=== PATIENT | male | born 1975 | race Caucasian/White ===

== ENCOUNTER 2024-07-10 10:40 | Emergency (ER) | payer BC, SELFPAY ==
[2024-07-10 11:34] VITALS: BP 139/89; PULSE 85; RESP 18; TEMP 36.1; O2SAT 98
--- NOTE | 2024-07-10 11:51 | ED.URI ---
HPI - URI/Sore Throat General Chief Complaint: Upper Respiratory Infection Stated Complaint: coughing and chest pain Source: patient Mode of arrival: ambulatory Limitations: no limitations History of Present Illness HPI Narrative: 49 y/o female presented for c/o headache, body aches, sinus pressure/congestion, cough, fever/chills. Onset 6 days. States he is starting to feel better over the past 3 days but the cough is persistent and now ?deep. ? States he can hear a wheeze a rattle when he takes a deep breath. Denies sob, chest pain, n/v/d. Related Data Allergies Allergy/AdvReac Type Severity Reaction Status Date / Time No Known Allergies Allergy Verified 07/10/24 11:46 Review of Systems Review of Systems: CONSTITUTIONAL: Denies body aches, fever, chills, or sweats. EYES: Denies visual changes, redness, or discharge. ENT: Denies rhinorrhea, congestion, sore throat, or otalgia. CARDIOVASCULAR: Denies chest pain, palpitations, or edema. RESPIRATORY: Reports cough, denies sob, wheezing. NEUROLOGIC: Denies headache, numbness, tingling, or weakness. PSYCH: Denies depression or anxiety. All systems reviewed & are unremarkable except as noted in HPI and below PMFSH Comments At time of signature, I have reviewed and agree with nursing past medical, surgical, social and family history unless otherwise noted. Please see nursing chart for further information. There is no relevant family history pertinent to the presenting complaint Exam Narrative: GENERAL: Well-appearing, in no acute distress. EYES: EOMI. No redness or drainage. Conjunctivae normal. ENT: Mucous membranes pink and moist. No rhinorrhea. TMs normal bilaterally. Throat normal. Uvula midline. CHEST: No respiratory distress. lungs clear to all forde. HEART: Regular rate and rhythm. No murmur appreciated. ABDOMEN: Soft, nontender, nondistended, normal active bowel sounds. SKIN: Warm, dry, no rash. Capillary refill normal. Normal skin turgor. NEURO: Alert and oriented x3. Gait steady. PSYCH: Normal affect. Course Course Emergency Course: Patient is aware of diagnosis, understands and agrees to treatment plan. Anticipatory guidance given. Patient agrees to follow-up as directed and is aware of reasons to seek care at the emergency department. Portions of this record may have been created with voice recognition software Level of Care: Express Care Visit Vital Signs Vital signs: Vital Signs Temperature 96.9 F L 07/10/24 11:34 Pulse Rate 85 07/10/24 11:34 Respiratory Rate 18 07/10/24 11:34 Blood Pressure 139/89 07/10/24 11:34 Pulse Oximetry 98 07/10/24 11:34 Oxygen Delivery Room Air 07/10/24 11:34 Temperature 96.9 F L 07/10/24 11:34 Pulse Rate 85 07/10/24 11:34 Respiratory Rate 18 07/10/24 11:34 Blood Pressure 139/89 07/10/24 11:34 Pulse Oximetry 98 07/10/24 11:34 Oxygen Delivery Room Air 07/10/24 11:34 MDM - URI/Sore Throat MDM Narrative Medical decision making narrative: Positive flu. Will send Rx were steroid for bronchitis. Discussed physical exam findings. Advised supportive measures and signs/symptoms to go to the ER. Pt is appropriate for outpt treatment and f/u. Differential Diagnosis Differential diagnosis: Likely upper respiratory infection, sinusitis, viral infection, bronchitis and influenza Discharge Plan Discharge Clinical Impression: Influenza Patient Disposition: Home, Self-Care Condition: Stable Instructions: Influenza (ED) Additional Instructions: Influenza positive You should avoid crowds until you are fever free for 24 hours without the use of fever reducing medications, or the symptoms are improved Rest. Drink plenty of fluids. Tylenol 1000mg every 8 hours as needed for pain/fever Flonase spray and Zyrtec (or Claritin/Mana) for sinus pressure/congestion over the counter Cough syrup may cause drowsiness; avoid driving or take it at night time. Follow up with your primary care provider as needed Go to the ER for worsening symptoms or concerns Patient Language: Luxembourgish Prescriptions: New prednisone 50 mg tablet 50 mg PO DAILY Qty: 5 0RF Follow-up/Referrals: UNKNOWN,DOCTOR [Primary Care Provider] - Time of Disposition: 11:57
[2024-07-10 11:55] LABS: EDCOVIDSCREEN Negative (Negative)
[2024-07-10 11:55] LABS: EDINFLUASCREEN Positive (Negative); EDINFLUBSCREEN Negative (Negative)
== END 2024-07-10 11:58 | disposition home or self-care (01) ==
PROVIDERS: Emergency Provider Nurse Practitioner Family
DX: J10.1 Influenza due to other identified influenza virus with other respiratory manifestations (principal); Z20.822 Contact with and (suspected) exposure to COVID-19
CPT/HCPCS: 87426; 87804; 99203; G0463

== ENCOUNTER 2025-01-13 14:58 | Emergency (ER) | payer BC, SELFPAY ==
--- NOTE | 2025-01-13 15:01 | ED_ITS ---
HPI - Extremity Injury (Upper) General Chief Complaint: Extremity Injury, Upper Stated Complaint: L arm pain hurting for 3/4 weeks ago Time Seen by Provider: 01/13/25 15:01 Source: patient Mode of arrival: ambulatory Limitations: no limitations History of Present Illness HPI narrative: Eduard is a 49-year-old male patient presenting to the clinic today with complaints of left forearm pain times 3-4 weeks. He reports 3 or 4 weekends ago he was moving things out of his father's home-completing a lot a heavy lifting and felt pain in his left proximal volar forearm. Has not been taking any medications for his symptoms. Pain is worse with movement of the left forearm. Does have some pain over the left biceps muscle at times. Related Data Allergies Allergy/AdvReac Type Severity Reaction Status Date / Time No Known Allergies Allergy Verified 01/13/25 15:27 PMFSH Comments At the time of my signature, I reviewed and agree with the nursing past medical, surgical, social, and family history. There is no relevant family history pertinent to the patient complaint. Course Course Emergency Course: Portions of this record may have been created with voice recognition software. Level of Care: Express Care Visit Vital Signs Vital signs: Vital Signs Temperature 36.1 C L 01/13/25 15:14 Pulse Rate 76 01/13/25 15:14 Respiratory Rate 18 01/13/25 15:14 Blood Pressure 134/95 H 01/13/25 15:14 Pulse Oximetry 98 01/13/25 15:14 Oxygen Delivery Room Air 01/13/25 15:14 Temperature 36.1 C L 01/13/25 15:14 Pulse Rate 76 01/13/25 15:14 Respiratory Rate 18 01/13/25 15:14 Blood Pressure 134/95 H 01/13/25 15:14 Pulse Oximetry 98 01/13/25 15:14 Oxygen Delivery Room Air 01/13/25 15:14 Vital signs reviewed MDM - Extremity Injury (Upper) MDM Narrative Medical decision making narrative: At the time of visit patient is resting comfortably on the exam table. Patient appears to be nontoxic. Complaints of left forearm pain times 3-4 weeks. He reports 3 or 4 weekends ago he was moving things out of his father's home- completing a lot a heavy lifting and felt pain in his left proximal volar forearm. Has not been taking any medications for his symptoms. Pain is worse with movement of the left forearm. Does have some pain over the left biceps muscle at times. Plan: I suspect patient has a trapezius/biceps muscle strain. Prescription for Medrol Dosepak was sent to the pharmacy. Recommend not lifting more than a gal of milk with the left arm x1 week. Supportive measures were discussed with the patient and they voiced understanding discharge instructions and agrees to treatment plan. Return precautions reviewed Differential Diagnosis Differential diagnosis: Likely other (Muscle strain, tendinitis, tendon tear) Discharge Plan Discharge Clinical Impression: Muscle strain of left forearm Qualifiers: Encounter type: initial encounter Qualified Code(s): S56.912A - Strain of unspecified muscles, fascia and tendons at forearm level, left arm, initial encounter Patient Disposition: Home Condition: Stable Instructions: Antibiotic Form, Muscle Strain (ED) Additional Instructions: Take Medrol Dosepak as prescribed Rest and ice Tylenol/motrin for pain as discussed. Over the next week-try not to lift any more than a gallon of milk with the left arm Follow up with your PCP if symptoms persist more than 1 week. Patient Language: Tajik Prescriptions: New methylprednisolone [Medrol (Sreedhar)] 4 mg tablets,dose pack See Rx Instructions PO .COMPLEX Qty: 21 0RF Rx Instructions: orally per package directions Follow-up/Referrals: UNKNOWN,DOCTOR [Non-Staff] Time of Disposition: 15:39 Quality NIHSS Nursing Documentation ED NIHSS nursing documentation: reviewed/agree
[2025-01-13 15:14] VITALS: BP 134/95; PULSE 76; RESP 18; TEMP 36.1; O2SAT 98
== END 2025-01-13 15:45 | disposition home or self-care (01) ==
PROVIDERS: Emergency Provider Nurse Practitioner Family
DX: S56.912A Strain of unspecified muscles, fascia and tendons at forearm level, left arm, initial encounter (principal); X58.XXXA Exposure to other specified factors, initial encounter
CPT/HCPCS: 99213; G0463